=== PATIENT | female | born 1995 | race African-American/Black ===

== ENCOUNTER 2019-01-08 12:15 | Emergency (ER) | payer OTHER ==
[~2019-01-08] VITALS: Ht 172.7 cm; Wt 74.4 kg
[2019-01-08 12:18] VITALS: BP 128/72
[2019-01-08] MEDS ORDERED: MOBIC7.5 MG PO (13:26)
== END 2019-01-08 14:13 | disposition home or self-care (01) ==
LOC: ER 12:15
DX: M79.651 Pain in right thigh (principal); Z86.718 Personal history of other venous thrombosis and embolism

== ENCOUNTER 2020-09-10 18:22 | Emergency (ER) | payer OTHER ==
[~2020-09-10] VITALS: Ht 172.7 cm; Wt 72.6 kg
[~2020-09-10 18:22] MED LIST: MOBIC7.5 MG PO
[2020-09-10] MEDS ORDERED: TOPROL XL50 MG PO (18:25)
[2020-09-10 21:36] VITALS: BP 123/82
== END 2020-09-10 21:37 | disposition home or self-care (01) ==
LOC: ER 18:22
DX: M79.10 Myalgia, unspecified site (principal); M79.651 Pain in right thigh; Z79.899 Other long term (current) drug therapy